=== PATIENT | female | born 2000 | race Two or more races ===

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

== ENCOUNTER 2018-04-02 01:34 | Emergency (ER) | payer OTHER ==
--- NOTE | 2018-04-02 02:54 | PDOC ---
History of Present Illness - General Chief Complaint: Chest Pain Stated Complaint: CHEST PAIN Time Seen by Provider: 04/02/18 02:54 History Source: Patient Exam Limitations: No Limitations - History of Present Illness Initial Comments: 04/02/18 03:07 Miss Hatch is a 17-year-old female with no significant past medical history who presents emergency department with a complaint of chest pain. Patient states her pain has been present for approximately one week. She describes her pain as sharp/aching. It originally began on the left side however she sometimes feels the pain in her left anterior chest, sometimes in her right anterior chest, sometimes in her left shoulder. She also notices leg pain. Pain has been intermittent, lasting approximately 5 minutes at a time. She decided to come into the emergency department tonight because her chest pain increased in intensity. She would describe her pain as 8/10. She denies fevers, chills, cough. Patient states her pain worsens when she lays down. She denies any association of her chest pain with exertion. Patient states her pain sometimes worsens with a deep breath, but this is not always. She did have an upper respiratory infection approximately one week ago. She denies recent travel, she denies lower extremity edema. She took Motrin at 5 PM which is somewhat improved her pain PMH: Denies PSH: Appendectomy, lithotripsy Medication: Depakote shot ALLERGIES: No known ALLERGIES Social: Patient denies tobacco use. Family history: Patient's mother has a history of hypertension, patient's father has a history of diabetes. ROS: GENERAL/CONSTITUTIONAL: No: fever, chills, weakness, loss of appetite. HEAD, EYES, EARS, NOSE AND THROAT: No: change in vision, ear pain, discharge, sore throat, throat swelling. CARDIOVASCULAR: Yes: chest pain No: lightheadedness, palpitations, syncope RESPIRATORY: No: cough, shortness of breath, wheezing, hemoptysis, stridor. GASTROINTESTINAL: No: nausea, vomiting, diarrhea, abdominal pain GENITOURINARY: No: dysuria, hematuria, frequency, urgency, flank pain. MUSCULOSKELETAL: No: back pain, neck pain, joint pain, muscle swelling or pain SKIN AND BREASTS: No: lesions, pallor, rash or easy bruising. NEUROLOGIC: No: headache, vertigo, paresthesias, weakness ENDOCRINE: No: unexplained weight gain or loss HEMATOLOGIC/LYMPHATIC: No: anemia, easy bleeding, swelling nodes. PE: GENERAL: The patient is in no acute distress. HEAD: Normal EYES: PERRLA, EOMI, sclera anicteric, conjunctiva clear. ENT: Ears normal, nares patent, oropharynx clear without exudates. Moist mucous membranes. NECK: Normal range of motion, supple without lymphadenopathy LUNGS: Breath sounds equal, clear to auscultation bilaterally. No wheezes, and no crackles. HEART:Regular rate and rhythm, normal S1 and S2 without murmur, rub or gallop. ABDOMEN: Soft, nontender, normoactive bowel sounds. No guarding, no rebound. No masses palpable. EXTREMITIES: Normal range of motion NEUROLOGICAL: Cranial nerves II through XII grossly intact. Normal speech. No focal neurological deficits. MUSCULOSKELETAL: Mild chest wall tenderness to palpation SKIN: Warm, Dry, normal turgor, no rashes or lesions noted. Past History - Past Medical History Allergies/Adverse Reactions: Allergies Allergy/AdvReac Type Severity Reaction Status Date / Time No Known Allergies Allergy Verified 04/02/18 02:58 Home Medications: Ambulatory Orders Tamsulosin HCl [Flomax] 0.4 mg PO DAILY 12/12/17 COPD: No - Surgical History Appendectomy: Yes - Suicide/Smoking/Psychosocial Hx Smoking History: Never smoked Have you smoked in the past 12 months: No Hx Alcohol Use: No Drug/Substance Use Hx: No Substance Use Type: None Hx Substance Use Treatment: No ED Treatment Course - LABORATORY CBC & Chemistry Diagram: 04/02/18 04:19 04/02/18 04:32 Medical Decision Making - Medical Decision Making 04/02/18 03:10 Differential includes cardiac ischemia, pe (given OCP use), pneumonia, pneumothorax, pleural effusion, costochondritis, pericarditis, GERD. Will do: Labs including Trop and D dimer EKG Tylenol for pain Re assess EKG: Twelve-lead EKG was performed and reviewed by me. There is normal sinus rhythm with a normal rate of 90 bpm. The axis is normal. The intervals are normal. There are no ST or T wave abnormalities. Impression: Normal twelve-lead EKG 04/02/18 05:29 Laboratory Tests 04/02/18 04/02/18 04/02/18 04:19 04:19 04:19 WBC 7.0 Hgb 13.2 Hct 39.6 D Plt Count 284 D D-Dimer < 200 BUN Creatinine Creatine Kinase Troponin I Serum , Qual Negative 04/02/18 04:32 WBC Hgb Hct Plt Count D-Dimer BUN 19 H Creatinine 0.6 Creatine Kinase 75 Troponin I < 0.02 Serum , Qual 04/02/18 07:17 CXR done Nml No pneumothorax No effusion *DC/Admit/Observation/Transfer Diagnosis at time of Disposition: Atypical chest pain - Discharge Dispostion Disposition: HOME Condition at time of disposition: Decision to Admit order: No - Referrals - Patient Instructions Printed Discharge Instructions: DI for Atypical Chest Pain Additional Instructions: Please read the [place] ED Care Sheets describing your diagnosis. PLEASE NOTE we suggest at a minimum that you review all symptoms and final test results with your physician. If you do not have one please follow up with Dr Diana and the resident clinic. THANK YOU for allowing us to help begin your care of this latest issue. Keep in mind the treatment performed in the Emergency Department is NOT complete until you have followed up with your Doctor. We want you to return to the ED as soon as possible if symptoms get worse or if you have any problems whatsoever. We advised you to take Tylenol if needed for pain - Post Discharge Activity
[2018-04-02 02:58] VITALS: BMI 26.4
[2018-04-02] MEDS ORDERED: ACETAMINOPHEN 325 MG TABLET (FP) PO ONE (03:13)
[2018-04-02] MEDS ORDERED: ACETAMINOPHEN 325 MG TABLET (FP) ONE (03:42)
[2018-04-02 04:38] LABS: BASO % 0.6 % (0-2.0); EOS % 1.2 % (0-4.5); HEMATOCRIT 39.6 % (32.4-45.2); HEMOGLOBIN 13.2 GM/dL (10.7-15.3); LYMPH % 47.6 % (8-40); MCH 30.2 pg (25.7-33.7); MCHC 33.4 g/dl (32.0-36.0); MEAN CELL VOLUME 90.3 fl (80-96); MEAN PLT VOLUME 9.5 fl (7.5-11.1); MONO % 7.9 % (3.8-10.2); NEUT % 42.7 % (42.8-82.8); PLATELET COUNT 284 K/MM3 (134-434); RBC 4.38 M/mm3 (3.60-5.2); RDW 12.8 % (11.6-15.6)
[2018-04-02 05:03] LABS: ALBUMIN 3.9 g/dl (3.4-5.0); ALK PHOS 68 U/L (45-117); ANION GAP 7 MMOL/L (8-16); BILIRUBIN,TOTAL 0.3 mg/dL (0.2-1); BLOOD UREA NITROGEN 19 mg/dL (7-18); CALCIUM 8.4 mg/dL (8.5-10.1); CHLORIDE 111 mmol/L (98-107); CO2 24 mmol/L (21-32); CREATININE 0.6 mg/dL (0.55-1.3); GLUCOSE,RANDOM 82 mg/dL (74-106); POTASSIUM 4.1 mmol/L (3.5-5.1); SGOT/AST 10 U/L (15-37); SGPT/ALT 18 U/L (13-61); SODIUM 142 mmol/L (136-145); TOT PROT 7.4 g/dl (6.4-8.2)
[2018-04-02 07:44] VITALS: BP 110/78; PULSE 89; TEMP 98.5
--- NOTE | 2018-04-02 12:08 | EKG ---
Test Reason : Blood Pressure : / mmHG Vent. Rate : 090 BPM Atrial Rate : 090 BPM P-R Int : 128 ms QRS Dur : 084 ms QT Int : 358 ms P-R-T Axes : 070 057 049 degrees QTc Int : 437 ms NORMAL SINUS RHYTHM POSSIBLE LEFT ATRIAL ENLARGEMENT BORDERLINE ECG WHEN COMPARED WITH ECG OF 12-DEC-2017 16:14, NO SIGNIFICANT CHANGE WAS FOUND Confirmed by ADRIANA PALACIOS MD ([id number]) on 04/02/2018 12:07:46 PM Referred By: Confirmed By:ADRIANA PALACIOS MD
== END 2018-04-02 07:44 | disposition home or self-care (01) ==
LOC: JER 01:34
DX: R07.89 Other chest pain (principal)
CPT/HCPCS: 36415; 71046-TC-FY; 80053; 82550; 84484; 84703; 85025; 85379; 93005; 93010; 99282-25